=== PATIENT | female | born 1945 ===

== ENCOUNTER 2022-07-26 07:15 | Inpatient (IN) | payer OTHER ==
[~2022-07-26] VITALS: Ht 157.5 cm; Wt 90.7 kg
[2022-07-26] MEDS ORDERED: ZYLOPRIM100 M1 PO (09:33)
[2022-07-26] MEDS ORDERED: MILLIPRED5 MG PO (09:33)
[2022-07-26] MEDS ORDERED: PENTOXIFYLLINE400 MG PO (09:34)
[2022-07-26] MEDS ORDERED: FAMOTIDINE (09:34)
[2022-07-26] MEDS ORDERED: PANADOL MAXIMU500 MG PO (09:35)
[2022-07-26] MEDS ORDERED: LOSARTAN POTASS25 MG PO (09:35)
[2022-08-02] MEDS ORDERED: FAMOTIDINE40 MG (14:12)
[2022-08-02] MEDS ORDERED: ATORVASTATIN CA10 MG (14:12)
[2022-08-02] MEDS ORDERED: OPTIMAL D31250 MCG (14:13)
[2022-08-02] MEDS ORDERED: HUMULIN 70100 UNIT/2 (14:13)
[2022-08-02] MEDS ORDERED: LOSARTAN-HCTZ1 EAC1 (14:13)
[2022-08-02] MEDS ORDERED: ST. JOSEPH ASPI81 M2 (14:13)
[2022-08-02] MEDS ORDERED: GABAPENTIN300 M2 (14:13)
[2022-08-02] MEDS ORDERED: PREDNISONE2.5 MG (14:13)
[2022-08-02] MEDS ORDERED: PERCOCET 5-3251 EACH PO (17:16)
[2022-08-02] MEDS ORDERED: ELIQUIS2.5 MG PO (17:16)
[2022-08-02] MEDS ORDERED: DUI500 PO (17:16)
== END 2022-08-02 23:00 | DRG 470 ==
LOC: SURG 07:15 → O/R 07-31 06:34 → OB/GYN 07-31 06:34 → SURG 07-31 07:15 → OB/GYN 07-31 13:59 → SURG 07-31 15:45 → OB/GYN 08-02 23:00
PROVIDERS: ADMIT Orthopaedic Surgery; ATTEND Orthopaedic Surgery
PROC: 0SRD0J9 Replacement of Left Knee Joint with Synthetic Substitute, Cemented, Open Approach (ICD-10-PCS; principal; 2022-07-31 15:45)
DX: M17.12 Unilateral primary osteoarthritis, left knee (principal); D62 Acute posthemorrhagic anemia; I10 Essential (primary) hypertension; E11.9 Type 2 diabetes mellitus without complications; Z79.4 Long term (current) use of insulin